=== PATIENT | female | born 2005 | race Caucasian/White ===

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

== ENCOUNTER → 2025-02-12 | Outpatient (CLI) | payer OTHER, MEDICAID, SELFPAY | END | disposition home or self-care (01) | LOC: LAB 15:34 | PROVIDERS: PCP Family Medicine; Visit Provider Physician Assistant Surgical | DX: R82.90 Unspecified abnormal findings in urine (principal) | CPT/HCPCS: 87077; 87086; 87088; 87186 ==

== ENCOUNTER → 2025-03-17 | Outpatient (CLI) | payer OTHER, SELFPAY ==
--- NOTE | 2025-03-17 12:27 | US_ITS ---
PROCEDURE: KIDNEY AND BLADDER 03/17/2025 REASON FOR EXAM: UTI TECHNIQUE: KIDNEY AND BLADDER COMPARISON: None FINDINGS: RIGHT Kidney Size: 10.9 cm x 5.4 cm x 3.8 cm Volume: 115.39 mL Cortical Thickness (if discernible): 1.5 cm (>6mm is normal) Extrarenal pelvis. No alyssia hydronephrosis seen. LEFT Kidney Size: 9.8 cm x 4.9 cm x 5.8 cm Volume: 146.13 mL Cortical Thickness (if discernible): 2.2 cm (>6mm is normal) Bladder: Prevoid volume: 780 mL. Postvoid volume: 0 mL. US/Kidney and Bladder IMPRESSION: NORMAL RENAL ULTRASOUND. Reading Location: [place] [id number]
== END | disposition home or self-care (01) ==
PROVIDERS: PCP Family Medicine; Referring Provider Urology; Visit Provider Urology
DX: N39.0 Urinary tract infection, site not specified (principal)
CPT/HCPCS: 76770